=== PATIENT | male | born 1985 | race Hispanic/Latino ===

== ENCOUNTER → 2020-04-26 09:47 | Outpatient (CLI) | payer OTHER, SELFPAY ==
--- NOTE | 2020-04-26 09:47 | RAD_ITS ---
STUDY: X-RAY - LEFT ELBOW REASON FOR EXAM: Male, 34 years old. INJURY. PT UNABLE TO COMPLETELY STRAIGHTEN ARM. BEST POSSIBLE FILMS TECHNIQUE: 3 view(s) of the elbow. COMPARISON: None. FINDINGS: Nondisplaced transverse fracture of the radial neck. There is degenerative arthrosis of the radiocapitellar and ulnotrochlear articulations. Joint effusion. RAD/Elbow min 3 Views IMPRESSION: Small joint effusion with nondisplaced transverse fracture of the radial neck. Electronically Signed: Wang Blackmon, at 10:08 EDT , Service support ,
== END ==
PROVIDERS: Referring Provider Physician Assistant; Visit Provider Physician Assistant
DX: M25.522 Pain in left elbow (principal)
CPT/HCPCS: 73080